=== PATIENT | female | born 1960 | race Caucasian/White ===

== ENCOUNTER 2020-06-30 07:17 | Observation (INO) ==
--- NOTE | 2020-06-01 15:57 | Communication Note ---
Received message from PAT RN that patient is planning to travel to [facility] 06/02-06/05. DOS for upcoming Right uni compartmental knee arthroplasty is currently scheduled as 06/13. Proximity of out of state travel to DOS means patient will not be able to be back at least 5 days prior to preop COVID testing. Abby at surgeon's office made aware for recommendation for patient to reschedule surgery to later date. She states she will have r/s to mid-June. She states she will also arrange for PAT visit to be rescheduled accordingly and contact patient to make them aware (patient already aware/agreeable with recommendations to postpone surgery d/t upcoming out of state travel).
--- NOTE | 2020-06-22 15:57 | PAT Medication Instructions ---
Medication Instructions Date of Service June 22, 2020 Home Medications acetaminophen 650 mg tablet,extended release 1,300 mg PO BID calcium carbonate-vitamin D3 [Calcium 600 + D(3)] 1 cap PO BID elderberry fruit [Elderberry] 1,000 mg PO QAM lorazepam 0.5 mg tablet 0.5 mg PO DAILY PRN multivitamin 1 cap PO QAM STOP taking 2 weeks before surgery (or as soon as possible if surgery is within 2 weeks) elderberry fruit [Elderberry] 1,000 mg PO QAM DO NOT take the morning of surgery calcium carbonate-vitamin D3 [Calcium 600 + D(3)] 1 cap PO BID multivitamin 1 cap PO QAM Take morning of surgery With a small sip of water, OTHERWISE NOTHING TO EAT OR DRINK AFTER MIDNIGHT: acetaminophen 650 mg tablet,extended release 1,300 mg PO BID (okay to take up to 4 hours prior to surgery if needed) lorazepam 0.5 mg tablet 0.5 mg PO DAILY PRN (if needed) Take evening before surgery acetaminophen 650 mg tablet,extended release 1,300 mg PO BID calcium carbonate-vitamin D3 [Calcium 600 + D(3)] 1 cap PO BID lorazepam 0.5 mg tablet 0.5 mg PO DAILY PRN (if needed) Other Notes If you have any questions please call us at [phone] or [phone] or [phone] or [phone]
--- NOTE | 2020-06-26 11:04 | Anesthesiology Consultation ---
Date of Service June 26, 2020 Assessment & Plan (1) Encounter for pre-operative examination: COVID screening: Per assessment on 06/26: Surgery was originally scheduled for 06/13 but rescheduled to 06/30 d/t patient planning to return from [place] 06/05 (travel for 's tito service). Uses PPE. No known COVID-19 positive contacts or current COVID-19 related symptoms. Surgeon arranged preop COVID testing (to be done 06/26 at [facility]). Awaiting results. Chart Review Chart Review: Acceptable Risk for Surgery and Patient seen in Pre Admission Testing Teaching & Discussion Pre-Anesthesia Teaching/Discussion Notes: Instructed NPO after midnight before surgery,except medications with 15 cc of water. Medication instructions provided according to the [facility] guidelines. History Surgery Operation Date: 06/30/20 09:05 Proposed Procedures p Right Uni Compartmental Knee Arthroplasty - Jose Martinez MD s Total Knee Arthroplasty - Jose Martinez MD Height/Weight Height: 5 ft 5 in Weight: 75.3 kg Allergies Allergy/AdvReac Type Severity Reaction Status Date / Time prednisone AdvReac Severe Extreme Verified 06/02/20 16:22 headache Medications Home Medications Medication Instructions Recorded Confirmed Last Taken acetaminophen 650 mg 1,300 mg PO BID 06/01/20 06/01/20 Unknown tablet,extended release calcium carbonate-vitamin D3 1 cap PO BID 06/01/20 06/01/20 Unknown [Calcium 600 + D(3)] elderberry fruit [Elderberry] 1,000 mg PO QAM 06/01/20 06/01/20 Unknown lorazepam 0.5 mg tablet 0.5 mg PO DAILY PRN 06/01/20 06/01/20 Unknown multivitamin 1 cap PO QAM 06/01/20 06/01/20 Unknown Past Medical History Medical History Anxiety High blood pressure with stress (? white coat syndrome) Insomnia occasional Pre-diabetes Diet controlled Exercise / Class Metabolic Activity II 4-5 Yardwork/Stairs/Walk up hill Past Family History Family History Sister Family history of diabetes mellitus Father Family history of diabetes mellitus Past Surgical History Surgical History H/O arthroscopy of right knee History of carpal tunnel release Right Hx of cholecystectomy Past Anesthesia History No Hx of Anesthesia Complications and No Family Hx of Anesthesia Complications History of PONV No Hx of PONV and Hx of Motion Sickness Social History Smoking Status: Never smoker Do You Dip or Chew Tobacco: No Hx Alcohol Use: Yes alcohol intake frequency: other (once/month) substance use type: does not use Review of Systems Rare snoring. Patient denies chest pain, shortness of breath, dyspnea on exertion, fever, chills, cough, wheezing, palpitations. Physical Exam Vital Signs VITALS BP 154/81 P 91 TEMP 98.2 SP02 99%RA RESP 16 PHYSICAL Full cervical extension range of motion. Full TMJ range of motion. TMD 3 finger breaths Mallampati Score 2 Dentition: intact, several crowns (all over) Lungs: clear throughout to auscultation Cardiac: regular rate and rhythm, no murmurs noted Spine: normal Carotid arteries: negative bruit Extremities: no edema Testing Laboratory Results 06/26/20 11:25 06/26/20 11:25 PT 9.8 Seconds (9.0-12.0) 06/26/20 11:25 INR 1.0 (0.9-1.1) 06/26/20 11:25 APTT 25.9 Seconds (21.0-31.0) 06/26/20 11:25 Blood Type O Positive 06/26/20 11:25 Antibody Screen NEGATIVE 06/26/20 11:25 Electrocardiogram Date: 06/26/20 NSR at 86bpm. RBBB. Chest X-Ray Date: 06/26/20 FINDINGS: Cardiac mediastinal and hilar silhouettes are within normal limits. No pneumothorax, pleural effusion, airspace consolidation or overt pulmonary edema. Suggested rotator cuff calcific tendinosis on the right. Bones appear grossly intact. IMPRESSION: No acute process. Stress Test Date: 03/18/19 Type: exercise Exercise echo normal without resting LV wall motion abnormalities or inducible ischemia. Stress EKG response showed no evidence of ischemia. LVEF 60 to 64%. Mild AR. Mild LAE. Mild TR. 10.3 METS.
[2020-06-26 12:18] LABS: Basophils # (auto) 0.02 K/uL (0-0.2); Basophils % (auto) 0.4 %; Eosinophils # (auto) 0.06 K/uL (0-0.5); Eosinophils % (auto) 1.2 %; Hematocrit (blood only) 38.1 % (37-47); Hemoglobin 12.7 g/dL (12.0-16.0); Immature Granulocytes # (auto) 0.01 K/uL (0.00-0.02); Immature Granulocytes % (auto) 0.2 %; Lymphocytes # (auto) 1.52 K/uL (1.2-3.4); Lymphocytes % (auto) 30.8 %; Mean Corpuscular Hemoglobin 30.9 pg (25-34); Mean Corpuscular Hgb Conc 33.3 g/dL (32-36); Mean Corpuscular Volume 92.7 fL (80-100); Mean Platelet Volume 9.7 fL (7.4-10.4); Monocytes # (auto) 0.55 K/uL (0.11-0.59); Monocytes % (auto) 11.1 %; Neutrophils # (auto) 2.78 K/uL (1.4-6.5); Neutrophils % (auto) 56.3 %; Platelet Count 301 K/uL (130-400); RDW Coefficient of Variation 12.3 % (11.5-14.5); RDW Standard Deviation 41.8 fL (36.4-46.3); Red Blood Count 4.11 M/uL (4.2-5.4); White Blood Count 4.94 K/uL (4.8-10.8)
--- NOTE | 2020-06-26 12:23 | XRay Report ---
TWO VIEW CHEST CLINICAL HISTORY: Preoperative examination. FINDINGS: PA and lateral chest radiographs are obtained. No prior studies are available for compariso n at the time of dictation. The cardiomediastinal silhouette is unremarkable. The lungs and pleural spaces are clear. There is no pneumothorax. The skeletal structures are osteopenic. The bony thorax appears intact. Cholecystectomy clips are noted in the right upper quadrant. IMPRESSION: No active disease in the chest. ACT 112: Negative or not required by law. Electronically signed by: Jay Manley M.D. 06/26/2020 12:22 PM
[2020-06-26 12:31] LABS: Partial Thromboplastin Time 25.9 Seconds (21.0-31.0); Prothrombin Time 9.8 Seconds (9.0-12.0)
[2020-06-26 12:53] LABS: Creatinine Clr Calc Pharmacy 100.4 ml/min; Est GFR (African American) 115.2; Est GFR (Non-African American) 99.4; Potassium 3.7 mmol/L (3.5-5.1)
--- NOTE | 2020-06-26 14:41 | Electrocardiogram Report ---
Test Reason : Blood Pressure : / mmHG Vent. Rate : 086 BPM Atrial Rate : 086 BPM P-R Int : 140 ms QRS Dur : 126 ms QT Int : 386 ms P-R-T Axes : 081 084 060 degrees QTc Int : 461 ms Normal sinus rhythm Right bundle branch block Abnormal ECG No previous ECGs available Confirmed by Gurinder Arenas ([id number]) on 06/26/2020 2:41:23 PM Referred By: Jose Martinez Confirmed By:Gurinder Arenas
[~2020-06-30 07:17] MED LIST: ACETAMINOPHEN 500 MG TAB PO SCH; BUPIVACAINE 0.5 % 5 MG/1 ML PF 10ML VIAL ONE; BUPIVACAINE LIPOSOME/PF 266 MG, BUPIVACAINE/EPINEPHRINE 50 ML, SODIUM CHLORIDE 0.9% 30 ... INFIL SCH; FAMOTIDINE 20 MG TAB PO SCH; GABAPENTIN 600 MG DOSE PO SCH; LR 500ML BOLUS, THEN 15ML/HR IV SCH; LR 60ML/HR IV SCH; Scopolamine 1 MG TDSY TD SCH; TRANEXAMIC ACID 1,000 MG **IV Intra-op IV SCH; ceFAZolin 2000MG 2,000 MG/15 ML SYR IV SCH
[2020-06-30] MEDS ORDERED: MIDAZOLAM HCL 1 MG/ML 2ML VIAL ONE ×2 (07:39→13:44)
[2020-06-30] MEDS ORDERED: fentaNYL citrate 100 MCG/2 ML VIAL ONE (07:39)
[2020-06-30] MEDS ORDERED: LIDOCAINE HCL 2% 2 ML VIAL/AMP(20MG/ML) INFIL ONE (07:40)
[2020-06-30] MEDS ORDERED: DEXAMETHASONE SOD INJ 4 MG/ML VIAL ONE (07:40)
[2020-06-30] MEDS ORDERED: PROPOFOL IV EMULSION 10 MG/ML 20 ML VIAL IV ONE ×2 (07:40→10:09)
[2020-06-30] MEDS ORDERED: ONDANSETRON INJ 2 MG/ML 2 ML VIAL ONE (07:40)
[2020-06-30] MEDS ORDERED: ATROPINE SULFATE 0.1 MG/ML 10ML SYR IV PRN (08:05)
[2020-06-30] MEDS ORDERED: ePHEDrine sulfate 50 MG/ML AMP IV PRN (08:05)
[2020-06-30] MEDS ORDERED: ONDANSETRON INJ 2 MG/ML 2 ML VIAL IV PRN ×2 (08:05→12:09)
[2020-06-30] MEDS ORDERED: fentaNYL citrate 100 MCG/2 ML VIAL IV PRN (08:05)
[2020-06-30] MEDS ORDERED: SODIUM CHLORIDE 0.9% PF 50 ML VIAL ONE (08:46)
[2020-06-30] MEDS ORDERED: BACITRACIN INJ 50,000 UNIT VIAL ONE (08:46)
[2020-06-30] MEDS ORDERED: EPINEPHrine INJ 1 MG/ML AMP ONE (08:46)
[2020-06-30] MEDS ORDERED: BUPIVACAINE LIPOSOME 1.3% 266 MG/20 ML VIAL ONE (08:46)
[2020-06-30] MEDS ORDERED: BUPIVACAINE 0.25% 30 ML VIAL ONE (08:47)
--- NOTE | 2020-06-30 08:50 | History & Physical Bridge Note ---
Date of Service June 30, 2020 History & Physical Bridge Note I have examined the patient, reviewed the History & Physical and in the interval since the performance of the History & Physical I have noted the following changes of clinical significance: no changes noted
[2020-06-30] MEDS ORDERED: ePHEDrine sulfate 50 MG/ML AMP ONE (10:31)
--- NOTE | 2020-06-30 11:00 | Operative Report ---
Post Operative Report Pre & Post Diagnosis Operation Date: 06/30/20 08:50 Pre-Op Diagnosis: Right Knee Osteoarthritis Post-Op Diagnosis: Right Knee Osteoarthritis I identified the patient and participated in the time-out.: Yes Procedure Operation Date: 06/30/20 08:50 Actual Procedures p Right Uni Compartmental Knee Arthroplasty, Cemented(Right) - Jose Martinez MD Surgeon Jose Martinez MD Laundromat Manager MARIANELA Silva Estimated Blood Loss 25 Findings Consistent with Post-Op Diagnosis Operative findings revealed advanced right knee medial compartment DJD. She had extensive grade 4 [id number] disease the medial femoral condyle eburnation and more focal changes medial till plateau. The lateral and patellofemoral compartments were well preserved. Her ACL was intact. Fluids 1200 cc. Specimens Right knee sent for pathology. Drains None. Anesthesia Type Spinal MAC Complications none Disposition Accompanied Patient To Recovery: No Disposition: Recovery Room Indications Patient is a 60-year-old female has had a several year history of progressive increasing right knee pain discomfort. She been through extensive conservative measures in the past which became less successful over time. X-rays show medial compartment arthritis. Her symptoms localized the medial side of her knee. She elected proceed with right partial knee replacement. Description of Procedure Operative implants consist of: 1 Biomet Harvey size small femoral component. 2. Biomet Harvey right medial size A tibial tray. 3. 5 mm mobile-bearing polyethylene insert. The patient was taken to the operating, identified, and placed on the operating table supine position but all contact areas were properly padded. IV antibiotics tried by anesthesia team. A spinal anesthetic and been implemented holding area. Rutherford catheter was placed in sterile fashion. A right thigh turn was then placed in the right lower extremities and prepped and draped in usual sterile fashion. The right leg was elevated exsanguinated with use of an Esmarch and turns placed at 3 mmHg. An anterior approach of the right knee was then performed to longitudinal incision beginning at the superior pole of patella and extending just medial to the tibial tubercle. Sharp dissection was got through subcutaneous tissue down the extensor mechanism. Subcutaneous tissue was mobilized circumferentially. An medial parapatellar arthrotomy incision was made. Some subperiosteal dissection was carried out medially taking great care to protect the MCL at all times. The fat pad was resected. Small some small osteophytes were then removed from the intercondylar notch area. I then examined the lateral aspect of the knee which showed was well preserved in the patellofemoral compartment was well-preserved. We elected proceed with the partial knee replacement. The femur was then sized to a size small. The external tibial alignment jig was then placed on the anterior aspect of the tibia and attached to the small spoon. The tibial guide was pinned in place and the proximal tibial cut was made. The tibia was sized to a size A. Attention drawn the femur. The distal femur then with a sharp drill. The intramedullary guide was placed. The distal femoral template was placed and attached to the IM manuel. The holes were drilled for the femoral component. The posterior cutting guide was placed and the posterior cut was made. I then removed the medial meniscus. The 0 spigot was used to mill the distal femur. We then trialed the knee in the 5 feeler gauge fit well and flexion in the 3 in extension. Therefore remove the implants, place the tube spigot milled the distal femur. We then trialed the knee and the 5 feeler gauge fit appropriately in flexion extension. All trial implants were removed. The cement drill was used to drill holes in the distal femur. The femoral preparation device was placed in the anterior femur was milled and the posterior osteophyte was removed from the distal femur. The tibial tray was then pinned in place. The toothbrush blade saw was used to create the defect for the keel. The trial left tibial tray was then placed. The femoral component was placed. We then trialed the one final time in the 5 insert fit appropriately in flexion extension. We elect to place these implants. All trial implants were removed. I irrigated the wound extensively. A double batch of Palacos G cement was mixed. A right medial size a tibial tray was cemented in place followed by a small femoral component. All extraneous cement was removed. The 5 feeler gauge was placed and the knee was brought out into a 30 degrees short of full extension until cement hardened. Final cement check was then performed. I then placed the permanent 5 mm insert. I irrigated the wound extensively. We injected locally with 100 cc of combination of 20 cc of Exparel, 30 cc normal saline, 50 cc of quarter percent Marcaine with epinephrine. The wound was irrigated. The tourniquet was then let down for tourniquet time of 64 minutes. Hemostasis assured use electrocautery. The extensor mechanism then closed with #1 Vicryl suture in a [id number] fashion. The subcutaneous tissue was then closed with 2-0 Dexon suture in a buried interrupted fashion skin was closed with skin malini. Legs then cleaned dried a sterile dressing was Xeroform, 4 x 4's, sterile ABD pad, sterile cast padding, Kenneth bandage applied. Patient then transferred to the recovery room in stable condition. Patient tolerated procedure well and there were no complications. Kyler Silva, my physician speech therapy assistant, was present for the entire procedure. His assistance was essential and required for appropriate patient positioning, prepping and draping, surgical exposure, performing the technical details of the operation, placement the implants, closure of the wound, and placement of the sterile bandage. I attest to the content of the Intraoperative Record and any orders documented therein. Any exceptions are noted below.
--- NOTE | 2020-06-30 11:21 | XRay Report ---
XR knee RT 1 or 2V routine HISTORY: 60 years-old Female Surgical Post Op right hip total joint arthroplasty COMPARISON: Knee radiographs 06/01/2020 TECHNIQUE: 2 views of the right knee FINDINGS: Right knee medial compartment hemiarthroplasty. Bony defect involves the anterior cortex of the proxi mal tibia. Satisfactory alignment with overlying skin malini, expected postoperative soft tissue swe lling and deep tissue air. Mild to moderate lateral and patellofemoral compartment osteoarthritis red emonstrated. IMPRESSION: Medial compartment hemiarthroplasty. No opaque foreign body. ACT 112: Negative or not required by law. The above report was generated using voice recognition software. It may contain grammatical, syntax o r spelling errors. Electronically signed by: Hugh Shay M.D. 06/30/2020 11:19 AM
--- NOTE | 2020-06-30 11:35 | Anesthesiology Progress Note ---
Date of Service June 30, 2020 Anesthesia Post Procedure Vital Signs Vital Signs: Temp Pulse Pulse Resp BP Pulse Ox 06/30/20 11:30 97.7 F 101 H 16 138/77 97 06/30/20 11:20 99 H 13 135/75 98 06/30/20 11:10 102 H 16 129/73 97 06/30/20 11:00 117 H 12 137/72 97 06/30/20 10:51 96.8 F L 110 H 18 133/70 100 06/30/20 08:27 96 H 18 162/78 H 99 06/30/20 08:05 99.5 F 91 H 18 148/78 H 99 Transfer of Care Handoff Completed per policy Notes Mental Status: alert / awake / arousable and participated in evaluation Patient Amnestic to Procedure: Yes Nausea / Vomiting: adequately controlled Pain: adequately controlled Airway Patency, RR, SpO2: stable & adequate BP & HR: stable & adequate Hydration State: stable & adequate Neuraxial Anesthesia: was administered and sensory block is resolving Anesthetic Complications: no major complications apparent and Pt Satisfied with anesthetic care
[2020-06-30] MEDS ORDERED: NALOXONE HCL 0.4 MG/1 ML VIAL/CARP IV PRN (12:09)
[2020-06-30] MEDS ORDERED: METOCLOPRAMIDE HCL INJ 5 MG/ML 2 ML VIAL IV PRN (12:09)
[2020-06-30] MEDS ORDERED: bisacodyL 10 MG SUPP PR PRN (12:09)
[2020-06-30] MEDS ORDERED: diphenhydrAMINE Capsule 25 MG CAP PO PRN (12:09)
[2020-06-30] MEDS ORDERED: HYDROmorphone INJ 0.5 MG/0.5 ML SYR IV PRN (12:09)
[2020-06-30] MEDS ORDERED: ALUMINUM/MAGNESIUM SUSP 30 ML UDC PO PRN (12:09)
[2020-06-30] MEDS ORDERED: MAGNESIUM HYDROXIDE SUSP 30 ML UDC PO PRN (12:09)
[2020-06-30] MEDS ORDERED: LORazepam 0.5 MG TAB PO PRN (12:09)
[2020-06-30] MEDS: SODIUM CHLORIDE 0.9% 1000ML 1,000 ML IV SCH (13:56)
[2020-06-30] MEDS: ACETAMINOPHEN 500 MG TAB PO SCH ×2 (13:56→21:17)
[2020-06-30] MEDS: KETOROLAC 30 MG/ML VIAL IV SCH ×2 (13:57→18:23)
--- NOTE | 2020-06-30 16:00 | Progress Notes ---
DATE: 06/30/2020 SUBJECTIVE: A 60-year-old white female postoperative from a right partial knee replacement. She is doing well. Starting to get some discomfort in her leg. No chest pain or shortness of breath. Not feeling dizzy or lightheaded. OBJECTIVE: VITAL SIGNS: Temperature is 36.8. Vital signs stable. GENERAL: Shows a pleasant, middle-aged female. She is sitting up in bed, looks quite comfortable. LUNGS: Clear to auscultation. HEART: Regular rate and rhythm. ABDOMEN: Soft, nontender, nondistended. EXTREMITIES: Grossly neurovascularly intact except as follows. Examination of the right leg reveals the leg to be well aligned. Dressing is clean, dry and intact. She can dorsiflex and plantarflex her foot appropriately. She can do a straight leg raise. X-RAYS: X-rays of the right knee from recovery room were reviewed. It shows a right cemented partial knee replacement. Components looked to be in good position. No signs of problems. ASSESSMENT: A 60-year-old white female postop from right partial knee replacement, doing well. Just starting to get the feeling and sensation back in her leg. PLAN: 1. DVT prophylaxis including thigh-high TEDs, SCDs, and aspirin b.i.d. for 4 weeks. 2. PT/OT. She can weightbear as tolerated. Right total knee protocol. 3. Pain control, doing okay with current pain regimen. We will use Tylenol around the clock and oxycodone as needed. She can also take NSAIDs. She is on Toradol in the hospital. 4. Disposition: Plan to discharge to home with some home health likely Friday.
[2020-06-30] MEDS: Scopolamine CHECK PATCH PLACEMENT SCH (17:22)
[2020-06-30] MEDS: oxyCODONE HCL IR 5 MG TAB (IMMEDIATE RELEASE) PO PRN (17:23)
[2020-06-30] MEDS: ceFAZolin 1000MG 1,000 MG/7.5 ML SYR IV SCH (17:23)
[2020-06-30] MEDS: ASCORBIC ACID 500 MG TAB PO SCH (17:23)
[2020-06-30] MEDS ORDERED: SENNA 8.6 MG TAB PO SCH (21:00)
[2020-06-30] MEDS: DOCUSATE SODIUM 100 MG CAP PO SCH (21:17)
[2020-06-30] MEDS: TAPENTADOL HCL ER 50 MG TABCR PO SCH (21:17)
[2020-06-30] MEDS: CALCIUM 600MG + VIT D 400 IU TAB PO SCH (21:17)
[2020-06-30] MEDS: ASPIRIN 81 MG ECTAB PO SCH (21:17)
[2020-07-01] MEDS: SODIUM CHLORIDE 0.9% 1000ML 1,000 ML IV SCH (00:28)
[2020-07-01] MEDS: Scopolamine CHECK PATCH PLACEMENT SCH ×2 (00:28→08:29)
[2020-07-01] MEDS: ceFAZolin 1000MG 1,000 MG/7.5 ML SYR IV SCH (01:04)
[2020-07-01] MEDS: KETOROLAC 30 MG/ML VIAL IV SCH ×2 (01:04→06:03)
[2020-07-01] MEDS: ACETAMINOPHEN 500 MG TAB PO SCH (06:03)
[2020-07-01] MEDS: CALCIUM 600MG + VIT D 400 IU TAB PO SCH (08:29)
[2020-07-01] MEDS: DOCUSATE SODIUM 100 MG CAP PO SCH (08:29)
[2020-07-01] MEDS: ASPIRIN 81 MG ECTAB PO SCH (08:29)
[2020-07-01] MEDS: ASCORBIC ACID 500 MG TAB PO SCH (08:30)
[2020-07-01] MEDS: TAPENTADOL HCL ER 50 MG TABCR PO SCH (08:39)
[2020-07-01] MEDS ORDERED: NON-FORMULARY MEDICATION (Multivitamin Capsule) PO SCH (09:00)
[2020-07-01] MEDS ORDERED: MULTIVITAMIN TAB PO SCH (09:00)
[2020-07-01] MEDS ORDERED: ELDERBERRY FRUIT PO SCH (09:00)
--- NOTE | 2020-07-01 09:09 | Orthopedic Progress Note ---
Date of Service July 01, 2020 Assessment & Plan (1) History of knee replacement procedure of right knee: ASSESSMENT: A 60-year-old white female postop from right partial knee replacement, doing well. The block is worn off and pain is well managed. She is ready for discharge today. PLAN: 1. DVT prophylaxis including thigh-high TEDs, SCDs, and aspirin b.i.d. for 4 weeks. 2. PT/OT. She can weightbear as tolerated. Right total knee protocol. Prefer sessions day prior to discharge 3. Pain control, doing okay with current pain regimen. We will use Tylenol around the clock and oxycodone as needed. She can also take NSAIDs. She is on Toradol in the hospital. 4. Disposition: Plan to discharge to home today after dressing change with some home health. Subjective She reports well-controlled pain. She reports a good appetite and that she was walking in the room. She looks forward to more PT today. She has several questions that I was able to answer. She is looking forward to going home today. Review of Systems All systems reviewed & are unremarkable except as noted in HPI & below. Physical Exam Right lower extremity: The dressing is clean dry and intact. She can perform straight leg raise. Positive PF/DF/EHL. DNVI. Constitutional WD/WN, vitals as above no acute distress and not intoxicated appearing Respiratory normal respiratory effort; no labored breathing Cardiovascular Extremities: normal capillary refill Results & Data Results & Data Laboratory Results . Diagnostic Findings . PG Care Time/CCT Total # of Minutes Spent Total Time Spent with Patient: Total time spent is greater than 50% in coordination of care (as documented) at patient's floor/unit and/or counseling patient: Coding Level of Care Code 32450 Post Operative Follow-Up Diagnoses History of knee replacement procedure of right knee Z96.651
[2020-07-01] MEDS: oxyCODONE HCL IR 5 MG TAB (IMMEDIATE RELEASE) PO PRN (10:50)
--- NOTE | 2020-07-03 07:47 | Discharge Summary ---
Date of Service July 03, 2020 Discharge Data Procedures Performed Operation Date: 06/30/20 08:50 Actual Procedures p Right Uni Compartmental Knee Arthroplasty, Cemented(Right) - Jose Martinez MD Hospital Course (1) History of knee replacement procedure of right knee: This patient is a 60 year old female admitted on 06/30/20 and underwent partial knee replacement. She tolerated the procedure well and there were no complications. Transferred to the PACU post op and later to the orthopedic floor for further care. She was given ancef for antibiotic prophylaxis. She was also given BURKE stockings, SCDs, and aspirin for DVT prophylaxis. Hemoglobin, hematocrit, and vital signs were monitored during her hospital stay and remained stable. Did not require any blood transfusions. There were no complications during her hospital stay. By post op day #1 the patient was tolerating a regular diet, pain was reasonably controlled with oral pain medicine, and she was participating in physical therapy. On post op day #1 the patient was discharged home and set up with home health care. She was given printed discharge instructions including prescriptions for extra strength tylenol, aspirin, and oxycodone. Continue physical therapy, weight bearing as tolerated. Continue BURKE stockings. Follow up approximately 2 weeks post op or sooner if there are problems or concerns. Coding Level of Care Code None Diagnoses History of knee replacement procedure of right knee Z96.651
== END 2020-07-01 12:15 | disposition home health service (06) ==
LOC: ASU 07:17 → 3E 07:17